=== PATIENT | male | born 1960 | race Caucasian/White ===

== ENCOUNTER 2019-01-20 19:37 | Inpatient (IN) | payer MEDICARE ==
[2019-01-20] MEDS: Atorvastatin Calcium 40 MG TAB PO SCH (20:39)
[2019-01-20] MEDS: Sulfameth/Trimethoprim DS 800-160mg TAB PO SCH (20:39)
[2019-01-20] MEDS: HYDROcodone/Acetaminophen 10/325 mg Tablet PO PRN (20:39)
[2019-01-20] MEDS: Apixaban 5 MG TAB PO SCH (20:39)
[2019-01-21] MEDS: HYDROcodone/Acetaminophen 10/325 mg Tablet PO PRN ×4 (01:14→21:17)
[2019-01-21 06:23] LABS: #Basophils 0.1 thou/uL (0.0-0.2); #Eosinphils 0.2 thou/uL (0.0-0.7); #Lymphocytes 0.9 thou/uL (1.20-3.40); #Monocytes 0.7 thou/uL (0.11-0.59); %Basophils 1.7 % (0.0-1.0); %Lymphocytes 15.6 % (21.0-51.0); %Neutrophils 66.7 % (42.0-75.0); Hemoglobin 15.1 g/dL (14.0-18.0); Mean Corpuscular HGB CONC 31.6 g/dL (32.0-36.0); Mean Corpuscular Hemoglobin 29.8 pg (27.0-31.0); Mean Corpuscular Volume 94.2 fL (78.0-98.0); Platelet Count 168 thou/uL (130-400); RBC Distribution Width 12.8 % (11.5-14.5); Red Blood Cell (RBC) Count 5.06 mill/uL (4.70-6.10)
[2019-01-21 06:38] LABS: ALT (SGPT) 24 U/L (8-55); AST (SGOT) 23 U/L (5-34); Albumin 3.3 g/dL (3.5-5.0); Alkaline Phosphatase 44 U/L (40-150); Anion Gap 13 mmol/L (10-20); BUN (Urea Nitrogen) 6 mg/dL (8.4-25.7); Bilirubin, Total 0.7 mg/dL (0.2-1.2); Calc. Creatinine Clearance 119 mL/min (70-130); Calcium 8.9 mg/dL (7.8-10.44); Carbon Dioxide 23 mmol/L (22-29); Chloride 103 mmol/L (98-107); Estimated GFR-MDRD Greater than 90; Globulin 2.9 g/dL (2.4-3.5); Glucose 86 mg/dL (70-105); Protein, Total 6.2 g/dL (6.0-8.3); Sodium 135 mmol/L (136-145)
[2019-01-21] MEDS: Lisinopril 10 MG TAB PO SCH (09:05)
[2019-01-21] MEDS: Sulfameth/Trimethoprim DS 800-160mg TAB PO SCH ×2 (09:05→20:23)
[2019-01-21] MEDS: Aspirin 81 mg Enteric Coated Tablet PO SCH (09:05)
[2019-01-21] MEDS: Apixaban 5 MG TAB PO SCH ×2 (09:05→20:23)
[2019-01-21] MEDS: Polyethylene Glycol 3350 17 GM Packet PO SCH (09:06)
--- NOTE | 2019-01-21 13:40 | HP ---
CHIEF COMPLAINT/BRIEF HISTORY: Peripheral vascular disease with right BKA stump wound, requiring admission to the hospital, IV antibiotics and evaluation by Vascular Surgery. Vascular Surgery felt that there is really not much they could do at this time, so he was treated with IV antibiotics and then has been switched over to Bactrim. His wound has been slowly healing. He was felt to need continued wound care and therapy and so has been transferred here to detention at [facility]. The patient is resting in bed and eating his lunch. He denies any questions or concerns. He states that the Delancey does help with the pain. He is tolerating his Bactrim. He was also restarted back on his Eliquis. No family at bedside. PAST MEDICAL HISTORY: 1. Peripheral vascular disease. 2. Hypertension. 3. Hyponatremia. 4. Dyslipidemia. 5. Deconditioning. 6. Bilateral BKA. 7. History of DVT. 8. History of alcohol and tobacco abuse. PAST SURGICAL HISTORY: 1. Bilateral BKA. 2. Inguinal hernia repair. 3. Appendectomy. FAMILY HISTORY: Positive for diabetes mellitus and coronary artery disease in his mother. Father at age 67 of leukemia. PSYCHOSOCIAL HISTORY: He smokes about a pack of cigarettes a day and has been doing for the last 35 years. He drinks about 6 to 12 beers daily. He denies any recreational drug use. MEDICATIONS: He has been transferred here on the following medications: 1. Bactrim DS p.o. b.i.d. 2. Eliquis 5 mg b.i.d. 3. Aspirin 81 mg daily. 4. Lipitor 40 mg daily. 5. Delancey 10/325 q.4 p.r.n. 6. Lisinopril 10 mg daily. 7. MiraLAX 17 g in 8 ounces of water daily. He has had 4 days of IV antibiotics, so we will continue Bactrim for a total of 10 days. REVIEW OF SYSTEMS: CARDIOVASCULAR SYSTEM: Denies any chest pain, shortness of breath, palpitations, PND, orthopnea, or pedal edema. RESPIRATORY SYSTEM: Denies any chronic cough, expectoration, or pleuritic-type chest pain. GASTROINTESTINAL SYSTEM: Denies any nausea, vomiting, diarrhea, constipation, hematemesis, melena, or hematochezia. GENITOURINARY SYSTEM: Denies any frequency, urgency, dysuria, or hematuria. CENTRAL NERVOUS SYSTEM: Generalized weakness. He has no focal numbness, weakness, or fainting spells. HEENT: Denies any difficulty speech, vision, hearing, or swallowing. SKIN: Denies any rash. PHYSICAL EXAMINATION: GENERAL: A pleasant 58-year-old male, resting comfortably and in no apparent distress. He responds appropriate to questions. VITAL SIGNS: He is afebrile. Heart rate 68, respirations 16, oxygen saturation 95% on room air, blood pressure 153/85. HEENT: Normocephalic, atraumatic. Pupils equally reactive to light and accommodation. External ocular muscles intact. NECK: No JVD, thyromegaly, cervical lymphadenopathy, or throat exudates. No carotid bruits. CARDIOVASCULAR SYSTEM: S1 and S2 plus. RESPIRATORY SYSTEM: Normal vesicular breath sounds. ABDOMEN: Soft, nontender. Bowel sounds heard in all quadrants. EXTREMITIES: Without cyanosis or clubbing. Right stump wounds with dressing. CENTRAL NERVOUS SYSTEM: Awake and responsive. Cranial nerves 2 through 12 grossly intact. Generalized weakness. LABORATORY DATA: Laboratory values done this morning shows a white count of 6, H and H are 15.1 and 47.6. Chemistry shows sodium 135, potassium 4.0, BUN and creatinine of 6 and 0.73. IMPRESSION: 1. Right kgorl-zbm-hrtl amputation stump wounds, requiring wound care. 2. Wound infection with Escherichia coli, Staphylococcus, and Stenotrophomonas, all sensitive to Bactrim. 3. Hypertension. 4. Dyslipidemia. 5. History of deep venous thrombosis. 6. Alcohol and tobacco abuse. PLAN: 1. Continue discharge medications. 2. Pain control. 3. Heart-healthy diet. 4. DVT prophylaxis. The patient is on Eliquis. 5. Decubitus precautions. 6. Wound care. 7. PT/OT eval and treat. 8. Routine laboratory values. 9. Discussed with the patient in detail and all questions answered. Job ID: [id number]
[2019-01-21] MEDS: Ibuprofen 800 MG TAB PO PRN (13:59)
[2019-01-21] MEDS: Atorvastatin Calcium 40 MG TAB PO SCH (20:23)
[2019-01-22] MEDS: HYDROcodone/Acetaminophen 10/325 mg Tablet PO PRN ×3 (09:11→21:04)
[2019-01-22] MEDS: Polyethylene Glycol 3350 17 GM Packet PO SCH (09:11)
[2019-01-22] MEDS: Apixaban 5 MG TAB PO SCH ×2 (09:12→21:04)
[2019-01-22] MEDS: Lisinopril 10 MG TAB PO SCH (09:12)
[2019-01-22] MEDS: Sulfameth/Trimethoprim DS 800-160mg TAB PO SCH ×2 (09:12→21:04)
[2019-01-22] MEDS: Aspirin 81 mg Enteric Coated Tablet PO SCH (09:12)
--- NOTE | 2019-01-22 13:19 | PRG ---
DATE OF SERVICE: 01/22/2019 SUBJECTIVE: Mr. Chan is doing well, resting comfortably in bed. Denies any concerns. His wound dressing was changed yesterday. He is happy with the progress. No family at bedside. OBJECTIVE: VITAL SIGNS: He is afebrile, heart rate 70, respirations 18, oxygen saturation 97% on room air, and blood pressure 163/84. CARDIOVASCULAR SYSTEM: S1 and S2 plus. RESPIRATORY SYSTEM: Normal vesicular breath sounds. ABDOMEN: Soft and nontender. Bowel sounds heard in all quadrants. EXTREMITIES: Bilateral BKA. Right BKA stump with dressing. CENTRAL NERVOUS SYSTEM: Grossly nonfocal. IMPRESSION: 1. Wounds to right below knee amputation, requiring wound care. 2. Peripheral vascular disease. 3. History of alcohol and tobacco abuse. 4. Hypertension. 5. Dyslipidemia. 6. History of deep venous thrombosis. PLAN: 1. Continue wound care and current medications. 2. DVT prophylaxis. He is on Eliquis. 3. 1800 calorie heart healthy ADA diet. 4. Accu-Cheks with sliding scale coverage. 5. Orthopedic precautions. 6. Physical therapy. 7. Routine laboratory values. 8. Discussed with the patient and nursing in detail and all questions answered. Job ID: [id number]
[2019-01-22] MEDS: Atorvastatin Calcium 40 MG TAB PO SCH (21:04)
[2019-01-23] MEDS: HYDROcodone/Acetaminophen 10/325 mg Tablet PO PRN ×2 (07:35→20:38)
[2019-01-23] MEDS: Sulfameth/Trimethoprim DS 800-160mg TAB PO SCH ×2 (09:01→20:38)
[2019-01-23] MEDS: Lisinopril 10 MG TAB PO SCH (09:01)
[2019-01-23] MEDS: Apixaban 5 MG TAB PO SCH ×2 (09:01→20:38)
[2019-01-23] MEDS: Aspirin 81 mg Enteric Coated Tablet PO SCH (09:02)
[2019-01-23] MEDS: Polyethylene Glycol 3350 17 GM Packet PO SCH ×2 (09:02→09:04)
[2019-01-23] MEDS: Ibuprofen 800 MG TAB PO PRN (10:39)
[2019-01-23 11:13] VITALS: BMI 21.5
[2019-01-23] MEDS: Atorvastatin Calcium 40 MG TAB PO SCH (20:38)
[2019-01-24] MEDS: Ibuprofen 800 MG TAB PO PRN ×2 (01:28→10:03)
[2019-01-24] MEDS: HYDROcodone/Acetaminophen 10/325 mg Tablet PO PRN ×3 (08:28→20:56)
[2019-01-24] MEDS: Aspirin 81 mg Enteric Coated Tablet PO SCH (08:29)
[2019-01-24] MEDS: Sulfameth/Trimethoprim DS 800-160mg TAB PO SCH ×2 (08:29→20:56)
[2019-01-24] MEDS: Polyethylene Glycol 3350 17 GM Packet PO SCH (08:29)
[2019-01-24] MEDS: Lisinopril 10 MG TAB PO SCH (08:29)
[2019-01-24] MEDS: Apixaban 5 MG TAB PO SCH ×2 (08:29→20:57)
[2019-01-24] MEDS: Atorvastatin Calcium 40 MG TAB PO SCH (20:56)
[2019-01-25] MEDS: Ibuprofen 800 MG TAB PO PRN ×2 (00:57→20:49)
[2019-01-25] MEDS: HYDROcodone/Acetaminophen 10/325 mg Tablet PO PRN ×2 (07:31→17:44)
[2019-01-25] MEDS: Sulfameth/Trimethoprim DS 800-160mg TAB PO SCH ×2 (08:47→20:49)
[2019-01-25] MEDS: Aspirin 81 mg Enteric Coated Tablet PO SCH (08:47)
[2019-01-25] MEDS: Lisinopril 10 MG TAB PO SCH (08:48)
[2019-01-25] MEDS: Polyethylene Glycol 3350 17 GM Packet PO SCH (08:48)
[2019-01-25] MEDS: Apixaban 5 MG TAB PO SCH ×2 (08:48→20:50)
[2019-01-25] MEDS: Atorvastatin Calcium 40 MG TAB PO SCH (20:50)
--- NOTE | 2019-01-25 20:55 | PRG ---
DATE OF SERVICE: 01/24/2019 SUBJECTIVE: The patient is a 58-year-old white male who has been admitted to the skilled unit for treatment of severe peripheral vascular disease with infection to his stump requiring IV antibiotics and then oral antibiotics. Because of incomplete healing, he was transferred to the skilled unit and continued on his Bactrim. He has been doing well with therapy with persistent, but decreased pain. OBJECTIVE: Shows; VITAL SIGNS: Temperature 97.8, pulse 83, respirations 18, O2 sats 92% on room air, blood pressure 119/63. LUNGS: Clear. CARDIAC: Showed regular rhythm. ABDOMEN: Soft and nontender. SKIN AND EXTREMITIES: Shows right BKA bandaged with abrasion and healing infection of the right knee. ASSESSMENT: 1. Cellulitis and infection of the right kolnz-emm-womq amputation with superficial infection, treated with wound care and oral antibiotics. 2. Severe peripheral vascular disease. 3. History of ETOH and alcohol abuse. 4. Hypertension. 5. Dyslipidemia. PLAN: 1. Continue wound care. 2. Continue Accu-Cheks with sliding scale coverage. 3. DVT prophylaxis. 4. Physical therapy to increase strength. Job ID: [id number]
--- NOTE | 2019-01-25 21:14 | PRG ---
DATE OF SERVICE: 01/25/2019 SUBJECTIVE: The patient feels well, lying in bed, visiting with friends on the phone. No complaints. At rest, stated his pain in his leg is getting better. He had no fever or chills. OBJECTIVE: VITAL SIGNS: Show his temperature is 96.5, pulse 74, respirations 18, O2 sats 96% on room air, blood pressure 104/61. LUNGS: Clear. CARDIAC: Shows regular rhythm. ABDOMEN: Soft, nontender. SKIN/EXTREMITIES: Shows right BKA bandaged with significant tenderness to palpation of the patella area. ASSESSMENT: 1. Slowly improving wound and cellulitis of the right jyenw-rne-vrja amputation superficial area. 2. Peripheral vascular disease, severe. Appears to be stable with adequate healing of the eyzkh-ebh-ybve amputation. 3. Nicotine and alcohol abuse. Appeared to be stable with no evidence of withdrawal. 4. Hypertension, controlled to goal. 5. History of deep venous thrombosis. PLAN: 1. Continue wound care. 2. Continue PT/OT. 3. Continue full-dose Eliquis for history of previous DVT. 4. Continue blood pressure control plan. Job ID: [id number]
[2019-01-26] MEDS: Ibuprofen 800 MG TAB PO PRN ×3 (06:08→20:41)
[2019-01-26] MEDS: Aspirin 81 mg Enteric Coated Tablet PO SCH (09:24)
[2019-01-26] MEDS: Lisinopril 10 MG TAB PO SCH (09:24)
[2019-01-26] MEDS: Apixaban 5 MG TAB PO SCH ×2 (09:24→20:41)
[2019-01-26] MEDS: Sulfameth/Trimethoprim DS 800-160mg TAB PO SCH ×2 (09:25→20:41)
[2019-01-26] MEDS: Polyethylene Glycol 3350 17 GM Packet PO SCH (09:26)
--- NOTE | 2019-01-26 13:43 | PRG ---
DATE OF SERVICE: 01/26/2019 SUBJECTIVE: Mr. Chan is doing well. Denies any complaints. Resting comfortably. Had a restful weekend. He is going to have his wound dressing changed again this afternoon and he is going to take his pain medicine about an hour before. No family at bedside. OBJECTIVE: VITAL SIGNS: He is afebrile. Heart rate 68, respirations 18, oxygen saturation 98% on room air, and blood pressure 110/63. CARDIOVASCULAR SYSTEM: S1 and S2 plus. RESPIRATORY SYSTEM: Normal vesicular breath sounds. ABDOMEN: Soft and nontender. Bowel sounds heard in all quadrants. EXTREMITIES: Bilateral BKA. Right stump with dressing. CENTRAL NERVOUS SYSTEM: Awake and responsive. Cranial nerves II through XII intact. Generalized weakness. IMPRESSION: 1. Right below the knee stump wounds requiring wound care. 2. Hypertension. 3. Dyslipidemia. 4. History of deep vein thrombosis. 5. History of alcohol and tobacco abuse. 6. Improving deconditioning. PLAN: 1. Continue current medications. 2. Nutritional support. 3. Heart healthy diet. 4. DVT prophylaxis-the patient is on Eliquis. 5. Decubitus precautions. 6. Wound care. 7. Therapy. 8. Routine laboratory values. 9. Discharge planning. Job ID: [id number]
[2019-01-26] MEDS: HYDROcodone/Acetaminophen 10/325 mg Tablet PO PRN ×2 (14:36→18:28)
[2019-01-26] MEDS: Atorvastatin Calcium 40 MG TAB PO SCH (20:41)
[2019-01-27] MEDS: Ibuprofen 800 MG TAB PO PRN ×4 (03:59→21:29)
[2019-01-27] MEDS: HYDROcodone/Acetaminophen 10/325 mg Tablet PO PRN (07:44)
[2019-01-27] MEDS: Lisinopril 10 MG TAB PO SCH (09:14)
[2019-01-27] MEDS: Sulfameth/Trimethoprim DS 800-160mg TAB PO SCH ×2 (09:14→21:30)
[2019-01-27] MEDS: Aspirin 81 mg Enteric Coated Tablet PO SCH (09:14)
[2019-01-27] MEDS: Apixaban 5 MG TAB PO SCH ×2 (09:14→21:30)
[2019-01-27] MEDS: Polyethylene Glycol 3350 17 GM Packet PO SCH (10:09)
--- NOTE | 2019-01-27 13:16 | PRG ---
DATE OF SERVICE: 01/27/2019 SUBJECTIVE: Mr. Chan said he did have some significant pain with wound change yesterday, and apparently, therapist was recommending that he may have to see his surgeon again, but I did not get any message, I will call therapy and find out. I did advise the patient that Dr. Doe had stated that there is nothing he can do from a revascularization standpoint, and if the wound is not healing, the only option he said was to do an AKA. The patient understands and is aware. OBJECTIVE: VITAL SIGNS: He is afebrile, heart rate 79, respirations 18, oxygen saturation 96% on room air, and blood pressure 101/62. CARDIOVASCULAR SYSTEM: S1 and S2 plus. RESPIRATORY SYSTEM: Normal vesicular breath sounds. ABDOMEN: Soft and nontender. Bowel sounds heard in all quadrants. EXTREMITIES: Bilateral BKA. Right BKA stump with dressing. CENTRAL NERVOUS SYSTEM: Awake and responsive. IMPRESSION: 1. Right below knee amputation stump with wound requiring wound care from therapy. 2. Peripheral vascular disease. 3. Hypertension. 4. Dyslipidemia. 5. History of deep venous thrombosis. 6. History of alcohol and tobacco abuse. PLAN: 1. Continue wound care. 2. Check with therapy and see what the patient was telling me about regarding possible specialist evaluation. 3. Heart healthy diet. 4. DVT and stress ulcer prophylaxis. The patient is on Eliquis. 5. Decubitus precautions. 6. Nutritional support. 7. Routine laboratory values. Job ID: [id number]
[2019-01-27] MEDS: Atorvastatin Calcium 40 MG TAB PO SCH (21:29)
[2019-01-28] MEDS: HYDROcodone/Acetaminophen 10/325 mg Tablet PO PRN ×4 (00:56→20:09)
[2019-01-28] MEDS: Ibuprofen 800 MG TAB PO PRN ×3 (05:50→22:28)
[2019-01-28] MEDS: Lisinopril 10 MG TAB PO SCH (08:27)
[2019-01-28] MEDS: Sulfameth/Trimethoprim DS 800-160mg TAB PO SCH ×2 (08:27→20:11)
[2019-01-28] MEDS: Apixaban 5 MG TAB PO SCH ×2 (08:28→20:11)
[2019-01-28] MEDS: Aspirin 81 mg Enteric Coated Tablet PO SCH (08:28)
[2019-01-28] MEDS: Polyethylene Glycol 3350 17 GM Packet PO SCH (08:28)
--- NOTE | 2019-01-28 12:53 | PRG ---
DATE OF SERVICE: 01/28/2019 SUBJECTIVE: Mr. Chan is doing the same. Denies any complaints. I discussed with Ananth, the wound care nurse yesterday and he stated that the wound is not healing, but it is also not getting any worse. He was wondering if anything can be done from a vascular standpoint. I had explained to him that Dr. Doe had pretty much said that nothing more he can do from a vascular standpoint and the only option he has left is to change it to an AKA so Ananth said he will keep an eye on the wound and if it is getting worse, he will let me know at which point we will transfer him back to [place] for the BKA to be converted to an AKA. OBJECTIVE: VITAL SIGNS: The patient is afebrile. Heart rate 76, respirations 18, oxygen saturation 94% on room air, blood pressure 101/74. CARDIOVASCULAR SYSTEM: S1-S2 plus. RESPIRATORY SYSTEM: Clear breath sounds. ABDOMEN: Soft, nontender. Bowel sounds in all quadrants. EXTREMITIES: Without cyanosis, clubbing. Bilateral BKA. Right BKA stump with dressing. IMPRESSION: 1. Right below knee amputation stump wound, probably ischemic in nature. 2. Peripheral vascular disease. 3. History of deep venous thrombosis and pulmonary embolus. 4. Dyslipidemia. 5. History of alcohol and tobacco abuse. 6. Deconditioning. PLAN: 1. Continue wound care. 2. Nutritional support. 3. DVT and stress ulcer prophylaxis. 4. Decubitus precautions. 5. Discontinue Bactrim, tomorrow the 25th it will be 10 days. 6. Wound care. 7. Recheck CBC and BMP in the morning. 8. Discussed with the patient in detail. All questions answered. Job ID: [id number]
[2019-01-28] MEDS: Atorvastatin Calcium 40 MG TAB PO SCH (20:11)
[2019-01-29] MEDS: HYDROcodone/Acetaminophen 10/325 mg Tablet PO PRN ×4 (03:37→21:10)
[2019-01-29 06:02] LABS: #Basophils 0.2 thou/uL (0.0-0.2); #Eosinphils 0.3 thou/uL (0.0-0.7); #Lymphocytes 1.2 thou/uL (1.20-3.40); #Monocytes 1.4 thou/uL (0.11-0.59); #Neutrophils 5.4 thou/uL (1.40-6.50); %Basophils 1.9 % (0.0-1.0); %Monocytes 16.1 % (0.0-10.0); Mean Corpuscular HGB CONC 31.4 g/dL (32.0-36.0); Mean Corpuscular Hemoglobin 29.2 pg (27.0-31.0); Mean Corpuscular Volume 92.9 fL (78.0-98.0); Mean Platelet Volume 6.1 fL (7.4-10.4); Platelet Count 243 thou/uL (130-400); RBC Distribution Width 12.3 % (11.5-14.5); Red Blood Cell (RBC) Count 5.15 mill/uL (4.70-6.10); White Blood Cell (WBC) Count 8.5 thou/uL (4.8-10.8)
[2019-01-29 06:15] LABS: Anion Gap 12 mmol/L (10-20); BUN (Urea Nitrogen) 14 mg/dL (8.4-25.7); Calc. Creatinine Clearance 115 mL/min (70-130); Calcium 9.6 mg/dL (7.8-10.44); Carbon Dioxide 26 mmol/L (22-29); Chloride 100 mmol/L (98-107); Estimated GFR-MDRD Greater than 90; Glucose 95 mg/dL (70-105); Potassium 4.8 mmol/L (3.5-5.1); Sodium 133 mmol/L (136-145)
[2019-01-29] MEDS: Polyethylene Glycol 3350 17 GM Packet PO SCH (07:51)
[2019-01-29] MEDS: Sulfameth/Trimethoprim DS 800-160mg TAB PO SCH ×2 (07:52→21:07)
[2019-01-29] MEDS: Lisinopril 10 MG TAB PO SCH (07:52)
[2019-01-29] MEDS: Apixaban 5 MG TAB PO SCH ×2 (07:53→21:07)
[2019-01-29] MEDS: Aspirin 81 mg Enteric Coated Tablet PO SCH (07:53)
[2019-01-29] MEDS: traMADol HCl 50 MG TAB PO PRN ×2 (11:55→18:21)
[2019-01-29] MEDS: Acetaminophen 325 MG TAB PO PRN ×2 (11:56→18:21)
--- NOTE | 2019-01-29 13:27 | PRG ---
DATE OF SERVICE: 01/29/2019 SUBJECTIVE: Mr. Chan is doing well. His tramadol was increased to 100 mg for better pain control. He is doing well otherwise. OBJECTIVE: VITAL SIGNS: He is afebrile. Heart rate 78, respirations 18, oxygen saturation 96% on room air, blood pressure 103/66. CARDIOVASCULAR SYSTEM: S1 and S2 plus. RESPIRATORY SYSTEM: Normal vesicular breath sounds. ABDOMEN: Soft, nontender. Bowel sounds heard in all quadrants. EXTREMITIES: Without cyanosis or clubbing. Bilateral BKA, right BKA wound with dressing. CENTRAL NERVOUS SYSTEM: Awake and responsive. Generalized weakness. LABORATORY DATA: White count is 8.5, hemoglobin and hematocrit are 15 and 47.8. Sodium 133, potassium 4.8, BUN and creatinine are 14 and 0.75. IMPRESSION: 1. Peripheral vascular disease. 2. Hyponatremia. 3. History of alcohol and tobacco abuse. 4. Hypertension. 5. Dyslipidemia. 6. History of DVT and PE on Eliquis. PLAN: 1. Continue wound care. 2. Nutritional support. 3. Pain control. His tramadol has been increased. 4. DVT and stress ulcer prophylaxis. He is on Eliquis. 5. Decubitus precautions. 6. Wound care. 7. Routine laboratory values. Job ID: [id number]
[2019-01-29] MEDS: Ibuprofen 800 MG TAB PO PRN ×2 (14:39→23:31)
[2019-01-29] MEDS: Atorvastatin Calcium 40 MG TAB PO SCH (21:07)
[2019-01-30] MEDS: Acetaminophen 325 MG TAB PO PRN ×3 (04:00→17:55)
[2019-01-30] MEDS: traMADol HCl 50 MG TAB PO PRN ×3 (04:00→17:54)
[2019-01-30] MEDS: Ibuprofen 800 MG TAB PO PRN ×3 (07:36→20:31)
[2019-01-30] MEDS: HYDROcodone/Acetaminophen 10/325 mg Tablet PO PRN (08:50)
[2019-01-30] MEDS: Lisinopril 10 MG TAB PO SCH (08:51)
[2019-01-30] MEDS: Sulfameth/Trimethoprim DS 800-160mg TAB PO SCH ×2 (08:51→20:31)
[2019-01-30] MEDS: Aspirin 81 mg Enteric Coated Tablet PO SCH (08:51)
[2019-01-30] MEDS: Famotidine 20 MG TAB PO SCH (08:51)
[2019-01-30] MEDS: Apixaban 5 MG TAB PO SCH ×2 (08:51→20:35)
[2019-01-30] MEDS: Polyethylene Glycol 3350 17 GM Packet PO SCH (08:52)
--- NOTE | 2019-01-30 11:30 | PRG ---
DATE OF SERVICE: 01/30/2019 SUBJECTIVE: Mr. Chan is doing well. He just finished his therapy. He is noticing some soreness in his right leg. No fever or chills. OBJECTIVE: VITAL SIGNS: He is afebrile. Heart rate 76, respirations 20, oxygen saturation 98% on room air, blood pressure 116/68. CARDIOVASCULAR: S1-S2 plus. RESPIRATORY: Normal vesicular breath sounds. ABDOMEN: Soft, nontender. Bowel sounds heard in all quadrants. EXTREMITIES: Bilateral BKA. Right BKA stump with dressing due to chronic wounds. CENTRAL NERVOUS SYSTEM: Generalized weakness. IMPRESSION: 1. Bilateral below knee amputation. 2. Right below knee amputation stump wound, likely ischemic. 3. History of alcohol and tobacco abuse. 4. History of deep venous thrombosis and pulmonary embolism, on Eliquis. 5. Hypertension. 6. Dyslipidemia. PLAN: 1. Continue current medications. 2. Nutritional support. 3. DVT and stress ulcer prophylaxis. 4. Decubitus precautions. 5. Wound care. 6. Pain control. 7. Physical therapy. 8. Monitor sodium levels. 9. Discussed with the patient in detail and all questions answered. Job ID: [id number]
[2019-01-30] MEDS: Atorvastatin Calcium 40 MG TAB PO SCH (20:31)
[2019-01-31] MEDS: Acetaminophen 325 MG TAB PO PRN ×2 (01:56→13:29)
[2019-01-31] MEDS: traMADol HCl 50 MG TAB PO PRN ×2 (01:56→13:28)
[2019-01-31] MEDS: HYDROcodone/Acetaminophen 10/325 mg Tablet PO PRN (07:28)
[2019-01-31] MEDS: Ibuprofen 800 MG TAB PO PRN (07:29)
[2019-01-31] MEDS: Famotidine 20 MG TAB PO SCH (09:11)
[2019-01-31] MEDS: Polyethylene Glycol 3350 17 GM Packet PO SCH (09:11)
[2019-01-31] MEDS: Sulfameth/Trimethoprim DS 800-160mg TAB PO SCH ×2 (09:11→20:33)
[2019-01-31] MEDS: Lisinopril 10 MG TAB PO SCH (09:11)
[2019-01-31] MEDS: Aspirin 81 mg Enteric Coated Tablet PO SCH (09:12)
[2019-01-31] MEDS: Apixaban 5 MG TAB PO SCH ×2 (09:12→20:32)
--- NOTE | 2019-01-31 16:08 | PRG ---
DATE OF SERVICE: 01/31/2019 SUBJECTIVE: Mr. Chan is complaining of more pain today. It apparently was under pretty good control yesterday. He is currently on tramadol 100 mg q.6 p.r.n. and hydrocodone 10/325 one tablet q.4 p.r.n. Plan is to change him on the tramadol to routine and I will change the hydrocodone to two 7.5 mg tablets q.4 p.r.n., which will get him close to the Tylenol maximum but not over. He also states that if he continues to have this much pain, then he would rather just undergo a right AKA and I advised him that let us re-evaluated this on Saturday, and if necessary, I will call Dr. Doe, who is his surgeon. OBJECTIVE: VITAL SIGNS: He is afebrile. Heart rate 95, respirations 18, oxygen saturation 95% on room air, and blood pressure 110/60. CARDIOVASCULAR SYSTEM: S1-S2 plus. RESPIRATORY SYSTEM: Normal vesicular breath sounds. ABDOMEN: Soft and nontender. Bowel sounds heard in all quadrants. EXTREMITIES: With bilateral BKA. Right BKA stump with dressing. IMPRESSION: 1. Likely ischemic ulcer, right BKA stump. 2. Peripheral vascular disease, resulting in bilateral BKA. 3. History of deep vein thrombosis and pulmonary embolism, on chronic anticoagulation. 4. History of alcohol and tobacco abuse. 5. Hyponatremia. PLAN: 1. Change tramadol to routine and change hydrocodone p.r.n. to 15 mg q.4. 2. Continue wound care. 3. Heart-healthy diet. 4. DVT prophylaxis. He is on Eliquis. 5. Decubitus precautions. 6. Stress ulcer prophylaxis. 7. Routine laboratory values. 8. Continue to monitor pain and will discuss with Dr. Doe on Saturday. Job ID: [id number]
[2019-01-31] MEDS: HYDROcodone/Acetaminophen 7.5/325 mg Tablet PO PRN ×2 (16:18→20:32)
[2019-01-31] MEDS: traMADol HCl 50 MG TAB PO SCH (17:31)
[2019-01-31] MEDS: Atorvastatin Calcium 40 MG TAB PO SCH (20:31)
[2019-02-01] MEDS: HYDROcodone/Acetaminophen 7.5/325 mg Tablet PO PRN ×4 (00:30→19:27)
[2019-02-01] MEDS: traMADol HCl 50 MG TAB PO SCH ×5 (01:11→23:58)
[2019-02-01] MEDS: Famotidine 20 MG TAB PO SCH (08:43)
[2019-02-01] MEDS: Polyethylene Glycol 3350 17 GM Packet PO SCH (08:43)
[2019-02-01] MEDS: Lisinopril 10 MG TAB PO SCH (08:43)
[2019-02-01] MEDS: Aspirin 81 mg Enteric Coated Tablet PO SCH (08:45)
[2019-02-01] MEDS: Apixaban 5 MG TAB PO SCH ×2 (08:45→20:38)
[2019-02-01] MEDS: Acetaminophen 325 MG TAB PO PRN ×2 (12:12→17:24)
[2019-02-01] MEDS: Atorvastatin Calcium 40 MG TAB PO SCH (20:38)
[2019-02-01] MEDS: Ibuprofen 800 MG TAB PO PRN (20:38)
[2019-02-02] MEDS: Ibuprofen 800 MG TAB PO PRN ×3 (02:53→20:50)
[2019-02-02] MEDS: traMADol HCl 50 MG TAB PO SCH ×3 (06:15→17:39)
[2019-02-02] MEDS: Apixaban 5 MG TAB PO SCH ×2 (09:02→20:50)
[2019-02-02] MEDS: Lisinopril 10 MG TAB PO SCH (09:02)
[2019-02-02] MEDS: Polyethylene Glycol 3350 17 GM Packet PO SCH (09:02)
[2019-02-02] MEDS: Famotidine 20 MG TAB PO SCH (09:02)
[2019-02-02] MEDS: Aspirin 81 mg Enteric Coated Tablet PO SCH (09:02)
[2019-02-02] MEDS: HYDROcodone/Acetaminophen 7.5/325 mg Tablet PO PRN (10:42)
[2019-02-02] MEDS: Acetaminophen 325 MG TAB PO PRN ×2 (12:18→17:39)
[2019-02-02] MEDS ORDERED: Sulfameth/Trimethoprim DS 800-160mg TAB PO SCH ×2 (13:45→21:00)
--- NOTE | 2019-02-02 13:46 | PRG ---
DATE OF SERVICE: 02/02/2019 SUBJECTIVE: Mr. Chan's right leg wound apparently looks worse today according to the Wound Care nurse. He is having some brownish drainage and a foul odor just like when he presented to the hospital. His Bactrim was done on the . His pain is also increasing. The patient states that he cannot deal with this anymore and he would really just like to get it converted to a right AKA if that is possible. His surgeon is Dr. Doe. I called his office and Dr. Doe is on vacation until February 09. Dr. Hampton is apparently covering and I spoke to the office staff and I asked Dr. Hampton to give me a call and I will figure out if Dr. Hampton wants to see him and see what he thinks or what the next step is. In the meantime, I am going to get him back on the Bactrim and get a CBC. Clinically, no fever at present. OBJECTIVE: VITAL SIGNS: He is afebrile. Heart rate 72, respirations 20, oxygen saturation 94% on room air, blood pressure 104/66. CARDIOVASCULAR SYSTEM: S1 and S2 plus. RESPIRATORY SYSTEM: Normal vesicular breath sounds. ABDOMEN: Soft and nontender. Bowel sounds heard in all quadrants. EXTREMITIES: Bilateral BKA. Right BKA stump with dressing. IMPRESSION: 1. Peripheral vascular disease requiring bilateral below-knee amputations. 2. Right below-knee amputation stump wound, getting worse per Wound Care with increasing pain. 3. History of alcohol and tobacco abuse. 4. History of deep venous thrombosis and pulmonary embolism, on anticoagulation. 5. Hyponatremia. PLAN: 1. Check CBC. 2. Resume Bactrim DS p.o. b.i.d.. 3. Continue current medications. 4. Await call from Dr. Hampton. 5. Continue wound care. 6. Monitor for any clinical deterioration. 7. Discussed with the patient in detail and all questions answered. Job ID: [id number]
[2019-02-02 14:29] LABS: Hemoglobin 14.6 g/dL (14.0-18.0); MDiff Complete? YES; Mean Corpuscular Hemoglobin 29.2 pg (27.0-31.0); Mean Corpuscular Volume 91.2 fL (78.0-98.0); Mean Platelet Volume 6.3 fL (7.4-10.4); Platelet Count 275 thou/uL (130-400); RBC Distribution Width 12.1 % (11.5-14.5); Red Blood Cell (RBC) Count 5.01 mill/uL (4.70-6.10); White Blood Cell (WBC) Count 9.5 thou/uL (4.8-10.8)
[2019-02-02 14:30] LABS: Band 2 % (5-11); Lymphocytes 24 % (21-51); Monocytes 9 % (0-10); Neutrophil 65 % (42-75); Platelet Morphology Comment Appears Adequate
[2019-02-02] MEDS: Atorvastatin Calcium 40 MG TAB PO SCH (20:50)
[2019-02-02] MEDS: Sulfameth/Trimethoprim DS 800-160mg TAB PO SCH (20:50)
[2019-02-03] MEDS: Acetaminophen 325 MG TAB PO PRN ×4 (00:02→17:48)
[2019-02-03] MEDS: traMADol HCl 50 MG TAB PO SCH ×4 (00:02→17:48)
[2019-02-03] MEDS: Ibuprofen 800 MG TAB PO PRN ×4 (03:11→21:08)
[2019-02-03] MEDS: Sulfameth/Trimethoprim DS 800-160mg TAB PO SCH ×2 (09:28→21:08)
[2019-02-03] MEDS: Lisinopril 10 MG TAB PO SCH (09:28)
[2019-02-03] MEDS: Aspirin 81 mg Enteric Coated Tablet PO SCH (09:28)
[2019-02-03] MEDS: Polyethylene Glycol 3350 17 GM Packet PO SCH (09:28)
[2019-02-03] MEDS: Famotidine 20 MG TAB PO SCH (09:28)
[2019-02-03] MEDS: Apixaban 5 MG TAB PO SCH ×2 (09:28→21:08)
--- NOTE | 2019-02-03 13:54 | PRG ---
DATE OF SERVICE: 02/03/2019 SUBJECTIVE: Mr. Chan is doing well. Denies any fever or chills. I informed him that I had contacted Dr. Hampton yesterday, and Dr. Hampton does feel like he needs to be examined, but it is not an emergency, and he would recommend waiting until Dr. Doe comes back. He said if it is an emergency, then to just send him to the ER. Mr. Chan is agreeable to wait. We got an appointment with him with Dr. Doe on the at 3 p.m. He states that the main issue is pain with wound care and I told him I will order some morphine prior to wound care. OBJECTIVE: VITAL SIGNS: He is afebrile, heart rate 71, respirations 20, oxygen saturation 95% on room air, and blood pressure 114/69. CARDIOVASCULAR SYSTEM: S1 and S2 plus. RESPIRATORY SYSTEM: Normal vesicular breath sounds. ABDOMEN: Soft and nontender. Bowel sounds heard in all quadrants. EXTREMITIES: Without cyanosis or clubbing. Bilateral BKA. Right BKA with dressing. LABORATORY DATA: Laboratory values done shows a sodium of 133, potassium 4.8, BUN and creatinine are 14 and 0.75. White count is 9.5 and H and H are 14.6 and 45.7. IMPRESSION: 1. Right below-knee amputation wound/ulcer, possibly ischemic. 2. Peripheral vascular disease, requiring bilateral below-knee amputation. 3. History of deep venous thrombosis and pulmonary embolism, requiring long-term anticoagulation. 4. History of tobacco and alcohol abuse. 5. Hyponatremia. PLAN: 1. Continue current medications including Bactrim. 2. Start morphine 2 mg to 4 mg IV prior to wound care. 3. Wound care. 4. Monitor for any worsening, and if so, we will send him to the ER. 5. Nursing aware of his appointment with Dr. Doe on February 11 at 3 p.m., to arrange transportation. 6. Nutritional support. 7. Discussed with the patient and nursing in detail and all questions answered. Job ID: [id number]
[2019-02-03] MEDS: Atorvastatin Calcium 40 MG TAB PO SCH (21:07)
[2019-02-04] MEDS: traMADol HCl 50 MG TAB PO SCH ×5 (00:19→23:55)
[2019-02-04] MEDS: Ibuprofen 800 MG TAB PO PRN ×3 (03:14→21:30)
[2019-02-04] MEDS ORDERED: Sodium Chloride 0.9% 20 ML ONE (07:21)
[2019-02-04] MEDS: Polyethylene Glycol 3350 17 GM Packet PO SCH (08:11)
[2019-02-04] MEDS: Aspirin 81 mg Enteric Coated Tablet PO SCH (08:11)
[2019-02-04] MEDS: Sulfameth/Trimethoprim DS 800-160mg TAB PO SCH ×2 (08:11→21:30)
[2019-02-04] MEDS: Apixaban 5 MG TAB PO SCH ×2 (08:11→21:30)
[2019-02-04] MEDS: Famotidine 20 MG TAB PO SCH (08:11)
[2019-02-04] MEDS: Lisinopril 10 MG TAB PO SCH (08:12)
[2019-02-04] MEDS ORDERED: Sodium Chloride 0.9% 10 ML ONE (12:59)
[2019-02-04] MEDS: Acetaminophen 325 MG TAB PO PRN (16:08)
[2019-02-04] MEDS: Atorvastatin Calcium 40 MG TAB PO SCH (21:29)
[2019-02-05] MEDS: Ibuprofen 800 MG TAB PO PRN ×4 (03:04→20:55)
[2019-02-05] MEDS: traMADol HCl 50 MG TAB PO SCH ×4 (05:55→23:38)
[2019-02-05] MEDS: Sulfameth/Trimethoprim DS 800-160mg TAB PO SCH ×2 (08:45→20:54)
[2019-02-05] MEDS: Apixaban 5 MG TAB PO SCH ×2 (08:45→20:54)
[2019-02-05] MEDS: Lisinopril 10 MG TAB PO SCH (08:45)
[2019-02-05] MEDS: Famotidine 20 MG TAB PO SCH (08:46)
[2019-02-05] MEDS: Aspirin 81 mg Enteric Coated Tablet PO SCH (08:46)
[2019-02-05] MEDS: Polyethylene Glycol 3350 17 GM Packet PO SCH (08:46)
--- NOTE | 2019-02-05 13:40 | PRG ---
DATE OF SERVICE: SUBJECTIVE: Mr. Chan is doing the same. Denies any complaints. He states the morphine 2 mg did help, but he still had some pain. Spoke with Wound Care from Physical Therapy and they state that the wound looks pretty much the same. No further deterioration, but they do not see it healing on its own. The patient does have an appointment with Dr. Doe on Saturday to discuss the possibility of surgical treatment, which most likely will be AKA. OBJECTIVE: VITAL SIGNS: The patient is afebrile, heart rate 66, respirations 16, oxygen saturation 96% on room air, and blood pressure 114/68. CARDIOVASCULAR SYSTEM: S1 and S2 plus. RESPIRATORY SYSTEM: Normal vesicular breath sounds. ABDOMEN: Soft and nontender. Bowel sounds heard in all quadrants. EXTREMITIES: Without cyanosis or clubbing. Bilateral BKA. Right BKA with dressing. IMPRESSION: 1. Peripheral vascular disease resulting in bilateral below-knee amputation. 2. Nonhealing ulcer to right below-knee amputation stump. 3. History of alcohol and tobacco abuse. 4. History of deep venous thrombosis and pulmonary embolism, on long-term anticoagulation. 5. Deconditioning. 6. Pain. PLAN: 1. Increase morphine to 4 mg prior to wound care. 2. Continue other pain medications. 3. Nutritional support. 4. Continue Eliquis. 5. Wound care. 6. Monitor for any worsening or sepsis, and if so, we will transfer him to the ER. 7. Follow up with Dr. Doe on February 11. 8. Discussed with the patient, nursing, and Wound Care and all questions answered. Job ID: [id number]
[2019-02-05] MEDS: Atorvastatin Calcium 40 MG TAB PO SCH (20:54)
[2019-02-06] MEDS: traMADol HCl 50 MG TAB PO SCH ×4 (05:29→23:25)
[2019-02-06] MEDS: Aspirin 81 mg Enteric Coated Tablet PO SCH (09:36)
[2019-02-06] MEDS: Sulfameth/Trimethoprim DS 800-160mg TAB PO SCH ×2 (09:36→19:53)
[2019-02-06] MEDS: Apixaban 5 MG TAB PO SCH ×2 (09:36→19:53)
[2019-02-06] MEDS: Lisinopril 10 MG TAB PO SCH ×2 (09:37→09:38)
[2019-02-06] MEDS: Famotidine 20 MG TAB PO SCH (09:37)
[2019-02-06] MEDS: Polyethylene Glycol 3350 17 GM Packet PO SCH (09:39)
--- NOTE | 2019-02-06 10:22 | PRG ---
DATE OF SERVICE: 02/06/2019 SUBJECTIVE: Mr. Chan is doing well. Denies any complaints. Resting comfortably. Has a followup appointment with Dr. Doe on Saturday. I increased his morphine before wound care, and he is hoping that helps. OBJECTIVE: VITAL SIGNS: He is afebrile, heart rate 74, respirations 16, oxygen saturation 96% on room air, blood pressure 100/64. CARDIOVASCULAR: S1 and S2 plus. RESPIRATORY: Normal vesicular breath sounds. ABDOMEN: Soft and nontender. Bowel sounds heard in all quadrants. EXTREMITIES: Bilateral BKA. Right BKA stump with wound dressing. IMPRESSION: 1. Wound to right below-knee amputation stump looks ischemic and not healing well. He is going to see Dr. Doe to see if it can be converted to an above-knee amputation. 2. Peripheral vascular disease. 3. History of deep venous thrombosis and pulmonary embolism, on anticoagulation. 4. History of alcohol and tobacco abuse. PLAN: 1. Continue wound care. 2. Continue Bactrim. 3. Deep venous thrombosis prophylaxis - he is on Eliquis. 4. Pain control. 5. Follow up with Dr. Doe. 6. Routine laboratory values. 7. Nutritional support. Job ID: [id number]
[2019-02-06] MEDS: Morphine 4 MG/ML VIAL SLOW IVP PRN (11:34)
[2019-02-06] MEDS: Atorvastatin Calcium 40 MG TAB PO SCH (19:53)
[2019-02-06] MEDS: Ibuprofen 800 MG TAB PO PRN (19:53)
[2019-02-07] MEDS: traMADol HCl 50 MG TAB PO SCH ×4 (05:29→23:56)
[2019-02-07] MEDS: Sulfameth/Trimethoprim DS 800-160mg TAB PO SCH ×2 (09:40→20:58)
[2019-02-07] MEDS: Famotidine 20 MG TAB PO SCH (09:40)
[2019-02-07] MEDS: Aspirin 81 mg Enteric Coated Tablet PO SCH (09:40)
[2019-02-07] MEDS: Apixaban 5 MG TAB PO SCH ×2 (09:40→20:58)
[2019-02-07] MEDS: Polyethylene Glycol 3350 17 GM Packet PO SCH (09:41)
[2019-02-07] MEDS: Ibuprofen 800 MG TAB PO PRN ×2 (10:11→16:26)
[2019-02-07] MEDS: Atorvastatin Calcium 40 MG TAB PO SCH (20:58)
[2019-02-08] MEDS: traMADol HCl 50 MG TAB PO SCH ×3 (05:37→17:25)
--- NOTE | 2019-02-08 06:42 | PRG ---
DATE OF SERVICE: 02/07/[address] Sarah Medina. SUBJECTIVE: The patient is lying in bed, watching TV, feels well. He states he is having persistent pain however in his right cayrf-vsi-rpew amputation, and is awaiting appointment to see Dr. Doe this week. He has become accustomed to the idea of the possible need for further revision and iuuzp-whz-vcpl amputation. OBJECTIVE: VITAL SIGNS: Blood pressure is 109/62, respirations 20, O2 sats 95% on room air, temperature 97, pulse 89. LUNGS: Clear. CARDIAC: Showed regular rhythm. ABDOMEN: Soft and nontender. SKIN/EXTREMITIES: Right lfaoh-yxz-qgbe stump is bandaged with tenderness to palpation over the patella and the stump incision. ASSESSMENT: 1. Persistent right lapke-yvv-imbw amputation stump ischemia, tenderness. Awaiting surgical evaluation this week. 2. Severe peripheral vascular disease, persistent. 3. History of deep venous thrombosis and pulmonary embolism, on adequate anticoagulation with apixaban 5 mg twice daily. 4. History of nicotine abuse with no recurrence during admission. PLAN: 1. Continue wound care. 2. Continue apixaban for deep venous thrombosis and treatment of pulmonary embolism. 3. Continue pain relief with medications per primary care physician. 4. Follow up with surgeon, Dr. Doe this week. Job ID: [id number]
[2019-02-08] MEDS: Lisinopril 10 MG TAB PO SCH (09:16)
[2019-02-08] MEDS: Aspirin 81 mg Enteric Coated Tablet PO SCH (09:16)
[2019-02-08] MEDS: Famotidine 20 MG TAB PO SCH (09:16)
[2019-02-08] MEDS: Sulfameth/Trimethoprim DS 800-160mg TAB PO SCH ×2 (09:16→20:36)
[2019-02-08] MEDS: Apixaban 5 MG TAB PO SCH ×2 (09:16→20:36)
[2019-02-08] MEDS: Polyethylene Glycol 3350 17 GM Packet PO SCH (09:17)
[2019-02-08] MEDS: HYDROcodone/Acetaminophen 7.5/325 mg Tablet PO PRN (20:34)
[2019-02-08] MEDS: Atorvastatin Calcium 40 MG TAB PO SCH (20:35)
--- NOTE | 2019-02-08 22:03 | PRG ---
DATE OF SERVICE: 02/08/2019 Patient is a patient of Dr. Sarah Medina. SUBJECTIVE: Patient feels well, except for pain in his knee and BKA, which has been consistent. He is having no shortness of breath, fever, chills, nausea, or vomiting. He is due to see his surgeon this week and is considering above knee amputation if his stump is not healing. OBJECTIVE: VITAL SIGNS: Show temperature is 97.3, pulse 81, respirations 20, O2 sats 96% on room air, and blood pressure 113/60. LUNGS: Clear. CARDIAC EXAMINATION: Shows regular rhythm. ABDOMEN: Soft and nontender. EXTREMITIES: Right BKA is bandaged but still operator brandy through the bandages. ASSESSMENT: 1. Right huvhd-ace-wmxj amputation with stump ischemia and tenderness. 2. Severe peripheral vascular disease. 3. History of deep venous thrombosis and pulmonary embolus, on apixaban, anticoagulation. 4. History of nicotine abuse with no recurrence. PLAN: Follow up with surgeon, Dr. Doe, this week. Continue wound care. Continue apixaban for DVT and treatment of embolism. Continue pain relief. Job ID: [id number]
[2019-02-09] MEDS: traMADol HCl 50 MG TAB PO SCH ×5 (00:06→18:05)
[2019-02-09] MEDS: Sulfameth/Trimethoprim DS 800-160mg TAB PO SCH ×2 (09:09→21:04)
[2019-02-09] MEDS: Aspirin 81 mg Enteric Coated Tablet PO SCH (09:09)
[2019-02-09] MEDS: Apixaban 5 MG TAB PO SCH ×2 (09:10→21:04)
[2019-02-09] MEDS: Famotidine 20 MG TAB PO SCH (09:10)
[2019-02-09] MEDS: Polyethylene Glycol 3350 17 GM Packet PO SCH (09:11)
[2019-02-09] MEDS: Lisinopril 10 MG TAB PO SCH (09:11)
--- NOTE | 2019-02-09 13:28 | PRG ---
DATE OF SERVICE: 02/09/2019 SUBJECTIVE: Mr. Chan is doing the same. Denies any complaints. Morphine is helping. No fever or chills. He states that his appetite is not as good. OBJECTIVE: VITAL SIGNS: He is afebrile. Heart rate is 72, respirations 16, oxygen saturation 96% on room air, blood pressure 104/70. CARDIOVASCULAR SYSTEM: S1 and S2 plus. RESPIRATORY SYSTEM: Normal vesicular breath sounds. ABDOMEN: Soft and nontender. Bowel sounds heard in all quadrants. EXTREMITIES: Bilateral BKA. Right BKA with dressing. CENTRAL NERVOUS SYSTEM: Awake and responsive. Generalized weakness. IMPRESSION: 1. Bilateral below-knee amputation due to peripheral vascular disease. 2. Nonhealing right below-knee amputation ulcer requiring wound care and pain medications. 3. History of alcohol and tobacco abuse. 4. History of deep venous thrombosis and pulmonary embolism requiring long-term anticoagulation. PLAN: 1. Continue current medications including antibiotics. 2. Add Florastor since he is on Bactrim. 3. Continue morphine before wound care. 4. He has appointment with Dr. Doe on Saturday. 5. Nutritional support. 6. Routine laboratory values. 7. Discussed with the patient and nursing in detail and all questions answered. Job ID: [id number]
[2019-02-09] MEDS: Morphine 4 MG/ML VIAL SLOW IVP PRN (13:53)
[2019-02-09] MEDS: Ibuprofen 800 MG TAB PO PRN ×2 (15:33→21:04)
[2019-02-09] MEDS: Saccharomyces boulardii 250 MG CAP PO SCH (21:04)
[2019-02-09] MEDS: Atorvastatin Calcium 40 MG TAB PO SCH (21:05)
[2019-02-10] MEDS: traMADol HCl 50 MG TAB PO SCH ×5 (00:11→23:45)
[2019-02-10] MEDS: Saccharomyces boulardii 250 MG CAP PO SCH ×2 (08:40→19:51)
[2019-02-10] MEDS: Polyethylene Glycol 3350 17 GM Packet PO SCH (08:40)
[2019-02-10] MEDS: Famotidine 20 MG TAB PO SCH (08:41)
[2019-02-10] MEDS: Apixaban 5 MG TAB PO SCH ×2 (08:41→19:51)
[2019-02-10] MEDS: Lisinopril 10 MG TAB PO SCH (08:41)
[2019-02-10] MEDS: Sulfameth/Trimethoprim DS 800-160mg TAB PO SCH ×2 (08:41→19:52)
[2019-02-10] MEDS: Aspirin 81 mg Enteric Coated Tablet PO SCH (08:41)
--- NOTE | 2019-02-10 13:52 | PRG ---
DATE OF SERVICE: 02/10/2019 SUBJECTIVE: Mr. Chan is doing the same. He was seen on his way to having a shower. He is scheduled to see Dr. Doe tomorrow. No concerns or questions. OBJECTIVE: VITAL SIGNS: He is afebrile. Heart rate 66, respirations 16, oxygen saturation 95% on room air, and blood pressure 102/62. CARDIOVASCULAR SYSTEM: S1 and S2 plus. RESPIRATORY SYSTEM: Normal vesicular breath sounds. ABDOMEN: Soft and nontender. Bowel sounds heard in all quadrants. EXTREMITIES: Bilateral BKA. Right BKA with dressing. IMPRESSION: 1. Nonhealing ulcer to right below-knee amputation stump. 2. Peripheral vascular disease requiring bilateral below-knee amputation. 3. History of deep vein thrombosis and pulmonary embolism, on long-term anticoagulation. 4. History of alcohol and tobacco abuse. 5. Deconditioning. 6. Hyponatremia. 7. Dyslipidemia. 8. Hypertension. PLAN: 1. Continue current medications. 2. Follow up with Dr. Doe tomorrow for possible AKA. 3. Wound care. 4. Pain control. 5. Continue Bactrim. 6. Routine laboratory values. 7. Wound care. 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 Job ID: [id number]
[2019-02-10] MEDS: Atorvastatin Calcium 40 MG TAB PO SCH (19:51)
[2019-02-10] MEDS: Ibuprofen 800 MG TAB PO PRN (19:52)
[2019-02-11] MEDS: traMADol HCl 50 MG TAB PO SCH ×4 (05:33→23:51)
[2019-02-11] MEDS: Apixaban 5 MG TAB PO SCH ×2 (08:58→20:10)
[2019-02-11] MEDS: Saccharomyces boulardii 250 MG CAP PO SCH ×2 (08:58→20:10)
[2019-02-11] MEDS: Polyethylene Glycol 3350 17 GM Packet PO SCH (08:58)
[2019-02-11] MEDS: Aspirin 81 mg Enteric Coated Tablet PO SCH (08:59)
[2019-02-11] MEDS: Famotidine 20 MG TAB PO SCH (08:59)
[2019-02-11] MEDS: Sulfameth/Trimethoprim DS 800-160mg TAB PO SCH ×2 (08:59→20:10)
[2019-02-11] MEDS: Lisinopril 10 MG TAB PO SCH (09:00)
--- NOTE | 2019-02-11 12:19 | PRG ---
DATE OF SERVICE: 02/11/2019 SUBJECTIVE: Mr. Chan is scheduled to see Dr. Doe this afternoon. He denies any concerns or questions. No fever or chills. OBJECTIVE: VITAL SIGNS: He is afebrile. Heart rate 67, respirations 18, oxygen saturation 97% on room air, and blood pressure 100/61. CARDIOVASCULAR SYSTEM: S1 and S2 plus. RESPIRATORY SYSTEM: Normal vesicular breath sounds. ABDOMEN: Soft and nontender. Bowel sounds heard in all quadrants. EXTREMITIES: Without cyanosis or clubbing. Bilateral BKA. Right BKA stump with dressing. CENTRAL NERVOUS SYSTEM: Awake and responsive. Cranial nerves 2 through 12 intact. IMPRESSION: 1. Peripheral vascular disease resulting in bilateral below-knee amputation. 2. Right below-knee amputation wound nonhealing. 3. History of deep venous thrombosis and pulmonary embolism, on anticoagulation. 4. History of alcohol and tobacco abuse. 5. Hypertension. 6. Dyslipidemia. PLAN: 1. Continue current medications. 2. Await Dr. Doe's opinion. Wound is not healing, most likely he will require an AKA. 3. Pain control. 4. Wound care. 5. Nutritional support. 6. Heart healthy diet. 7. Monitor blood pressure. 8. Routine laboratory values. Job ID: [id number]
[2019-02-11] MEDS: Morphine 4 MG/ML VIAL SLOW IVP PRN (14:15)
[2019-02-11] MEDS: Acetaminophen 325 MG TAB PO PRN (17:23)
[2019-02-11] MEDS: Ibuprofen 800 MG TAB PO PRN (20:10)
[2019-02-11] MEDS: Atorvastatin Calcium 40 MG TAB PO SCH (20:10)
[2019-02-12] MEDS: traMADol HCl 50 MG TAB PO SCH ×3 (05:59→17:20)
[2019-02-12] MEDS: Polyethylene Glycol 3350 17 GM Packet PO SCH (08:39)
[2019-02-12] MEDS: Lisinopril 10 MG TAB PO SCH (08:40)
[2019-02-12] MEDS: Famotidine 20 MG TAB PO SCH (08:40)
[2019-02-12] MEDS: Saccharomyces boulardii 250 MG CAP PO SCH ×2 (08:40→20:55)
[2019-02-12] MEDS: Sulfameth/Trimethoprim DS 800-160mg TAB PO SCH ×2 (08:40→20:56)
[2019-02-12] MEDS: Apixaban 5 MG TAB PO SCH (08:40)
[2019-02-12] MEDS: Aspirin 81 mg Enteric Coated Tablet PO SCH (08:40)
[2019-02-12] MEDS ORDERED: Mag-Al Plus 1200 MG/1200 MG/120 MG/30 ML UDCUP PO PRN (11:46)
--- NOTE | 2019-02-12 14:15 | PRG ---
DATE OF SERVICE: 02/12/2019 SUBJECTIVE: Mr. Chan saw Dr. Doe yesterday and plan is for him to get a right AKA tomorrow. He is supposed to be n.p.o. after midnight and apparently, all instructions have been given to nursing by his surgeon. The patient denies any concerns or questions. He states that he may be in the hospital for 3 days and is not sure whether he is going to come back here. OBJECTIVE: VITAL SIGNS: He is afebrile. Heart rate 77, respirations 16, oxygen saturation 94% on room air, blood pressure 104/62. CARDIOVASCULAR SYSTEM: S1 and S2 plus. RESPIRATORY SYSTEM: Normal vesicular breath sounds. ABDOMEN: Soft and nontender. Bowel sounds heard in all quadrants. EXTREMITIES: Bilateral BKA. Right BKA stump with dressing. CENTRAL NERVOUS SYSTEM: Awake and responsive. Generalized weakness. IMPRESSION: 1. Peripheral vascular disease, resulting in bilateral uanys-qmr-eusa amputation. 2. Right lgsir-mix-nvkz amputation stump with wounds, slowly healing, but significant pain. 3. History of deep venous thrombosis and pulmonary embolism, on anticoagulation. 4. History of alcohol and tobacco abuse. 5. Hypertension. 6. Dyslipidemia. PLAN: 1. Continue current medications. 2. Wound care. 3. Bactrim will stop after today. 4. N.p.o. after midnight for AKA tomorrow. 5. Discussed with the patient in detail. All questions answered. Job ID: [id number]
[2019-02-12] MEDS: Ibuprofen 800 MG TAB PO PRN (20:55)
[2019-02-12] MEDS: Atorvastatin Calcium 40 MG TAB PO SCH (20:55)
[2019-02-13] MEDS: traMADol HCl 50 MG TAB PO SCH ×2 (00:56→05:38)
[2019-02-13 08:28] VITALS: BP 102/63; TEMP 97
[2019-02-13] MEDS ORDERED: Apixaban 5 MG TAB PO SCH (09:00)
--- NOTE | 2019-02-13 10:29 | DIS ---
DATE OF ADMISSION: 01/20/2019 DATE OF DISCHARGE: 02/13/2019 PRINCIPAL DIAGNOSES: 1. Slowly healing right below-knee amputation stump ulcer, with plans for above-knee amputation today. 2. Peripheral vascular disease. 3. Hypertension. 4. Dyslipidemia. 5. History of deep venous thrombosis and pulmonary embolism, requiring chronic anticoagulation. 6. Hyponatremia. 7. History of alcohol and tobacco abuse. 8. Deconditioning. COMPLICATIONS: None. ADVERSE REACTIONS: None. PROCEDURES: Wound care. CONSULTATIONS: None. HOSPITAL COURSE: The patient was admitted after being admitted to [facility] in [place] with right BKA stump wound. He was initially treated with IV antibiotics and evaluated by Vascular Surgery, who felt that he just needs continued wound care, and if he does not improve, then the only other option is converting it to a right AKA. He came to us on Bactrim. He has been doing well, except just not fast enough improvement in his wound, but with worsening pain, requiring IV morphine prior to wound care. He was seen by Dr. Doe for followup, and because of the significant pain and the slow healing, the patient wanted some treatment that would give him improvement with his pain and apparently agreement was made to have him undergo an AKA. He is being transferred to the hospital for AKA. The patient was kept n.p.o. after midnight. His antibiotics have been discontinued. PHYSICAL EXAMINATION: VITAL SIGNS: On the day of discharge, he is afebrile, heart rate 74, respirations 18, oxygen saturation 96% on room air, and blood pressure 102/63. CARDIOVASCULAR SYSTEM: S1 and S2 plus. RESPIRATORY SYSTEM: Normal vesicular breath sounds. ABDOMEN: Soft and nontender. Bowel sounds heard in all quadrants. EXTREMITIES: Without cyanosis or clubbing. Bilateral BKA. Right BKA stump with dressing. CENTRAL NERVOUS SYSTEM: Awake and responsive. Cranial nerves 2 through 12 intact. Generalized weakness. PLAN: Transfer to [facility] for right AKA. DISCHARGE MEDICATIONS: He is to continue his, 1. [place] 7.5/325 two tablets q.4 p.r.n. 2. Eliquis 5 mg b.i.d. 3. Ecotrin 81 mg daily. 4. Lipitor 80 mg daily. 5. Pepcid 20 mg daily. 6. Motrin 800 mg q.6 p.r.n. 7. Lisinopril 10 mg daily. 8. MiraLAX 17 g in 8 ounces of water daily. 9. Tramadol 100 mg q.6 scheduled. He will be followed by Dr. Doe and possibly the medical team. If the patient comes back here, we will be glad to continue to follow him. For full details, please see chart. Job ID: [id number]
[2019-02-14] MEDS ORDERED: Aspirin 81 mg Enteric Coated Tablet PO SCH (09:00)
== END 2019-02-13 07:40 | disposition short-term general hospital (02) | DRG 565 ==
LOC: NAV ACUTE 19:37
PROVIDERS: ADMIT Internal Medicine; ATTEND Internal Medicine
DX: T87.43 Infection of amputation stump, right lower extremity (principal); E87.1 Hypo-osmolality and hyponatremia; B96.20 Unspecified Escherichia coli [E. coli] as the cause of diseases classified elsewhere; B95.8 Unspecified staphylococcus as the cause of diseases classified elsewhere; I10 Essential (primary) hypertension; E78.5 Hyperlipidemia, unspecified; F17.210 Nicotine dependence, cigarettes, uncomplicated; I73.9 Peripheral vascular disease, unspecified; F10.10 Alcohol abuse, uncomplicated; T87.89 Other complications of amputation stump; R53.81 Other malaise; Z86.718 Personal history of other venous thrombosis and embolism; Z90.49 Acquired absence of other specified parts of digestive tract; Z79.82 Long term (current) use of aspirin; Z86.711 Personal history of pulmonary embolism; Y83.5 Amputation of limb(s) as the cause of abnormal reaction of the patient, or of later complication, without mention of misadventure at the time of the procedure
CPT/HCPCS: 36415; 80048; 80053; 85025; 90471; 90732; 97602; G0009; J2270

== ENCOUNTER 2019-02-17 19:24 | Inpatient (IN) | payer MEDICARE ==
[2019-02-17] MEDS ORDERED: Acetaminophen 325 MG TAB PO PRN (19:56)
[2019-02-17] MEDS ORDERED: Morphine 4 MG/ML VIAL SLOW IVP PRN (20:00)
[2019-02-17] MEDS: Saccharomyces boulardii 250 MG CAP PO SCH (20:41)
[2019-02-17] MEDS: Apixaban 5 MG TAB PO SCH (20:41)
[2019-02-17] MEDS: Atorvastatin Calcium 40 MG TAB PO SCH (20:41)
[2019-02-17] MEDS: Sulfameth/Trimethoprim DS 800-160mg TAB PO SCH (20:42)
[2019-02-17] MEDS: HYDROcodone/Acetaminophen 10/325 mg Tablet PO PRN (20:42)
[2019-02-18] MEDS: traMADol HCl 50 MG TAB PO PRN (00:12)
[2019-02-18] MEDS: HYDROcodone/Acetaminophen 10/325 mg Tablet PO PRN ×3 (05:13→17:37)
[2019-02-18 05:35] LABS: #Basophils 0.1 thou/uL (0.0-0.2); #Eosinphils 0.4 thou/uL (0.0-0.7); #Lymphocytes 1.8 thou/uL (1.20-3.40); #Monocytes 0.6 thou/uL (0.11-0.59); #Neutrophils 2.9 thou/uL (1.40-6.50); %Basophils 1.5 % (0.0-1.0); %Eosinophils 6.3 % (0.0-10.0); %Lymphocytes 31.7 % (21.0-51.0); %Monocytes 10.6 % (0.0-10.0); %Neutrophils 49.8 % (42.0-75.0); Hemoglobin 12.9 g/dL (14.0-18.0); Mean Corpuscular HGB CONC 32.7 g/dL (32.0-36.0); Mean Corpuscular Hemoglobin 29.4 pg (27.0-31.0); Mean Corpuscular Volume 89.7 fL (78.0-98.0); Mean Platelet Volume 6.7 fL (7.4-10.4); Platelet Count 177 thou/uL (130-400); RBC Distribution Width 11.5 % (11.5-14.5); White Blood Cell (WBC) Count 5.8 thou/uL (4.8-10.8)
[2019-02-18 05:47] LABS: Anion Gap 12 mmol/L (10-20); BUN (Urea Nitrogen) 11 mg/dL (8.4-25.7); Calc. Creatinine Clearance 117 mL/min (70-130); Calcium 9.1 mg/dL (7.8-10.44); Carbon Dioxide 23 mmol/L (22-29); Chloride 104 mmol/L (98-107); Estimated GFR-MDRD Greater than 90; Glucose 96 mg/dL (70-105); Potassium 4.3 mmol/L (3.5-5.1); Sodium 135 mmol/L (136-145)
[2019-02-18] MEDS: Apixaban 5 MG TAB PO SCH ×2 (08:02→20:44)
[2019-02-18] MEDS: Lisinopril 10 MG TAB PO SCH (08:03)
[2019-02-18] MEDS: Polyethylene Glycol 3350 17 GM Packet PO SCH (08:03)
[2019-02-18] MEDS: Aspirin 81 mg Enteric Coated Tablet PO SCH (08:03)
[2019-02-18] MEDS: Famotidine 20 MG TAB PO SCH (08:03)
[2019-02-18] MEDS: Saccharomyces boulardii 250 MG CAP PO SCH ×2 (08:04→20:44)
[2019-02-18] MEDS: Sulfameth/Trimethoprim DS 800-160mg TAB PO SCH (08:04)
--- NOTE | 2019-02-18 14:16 | HP ---
PRINCIPAL DIAGNOSIS: Status post revision of his right BKA to AKA for physical therapy. BRIEF HISTORY: This is a pleasant 58-year-old male, who is known to me from his previous admission here. He was noted to have nonhealing wounds to his right BKA stump with increasing pain and so saw his surgeon and was converted to a right AKA. He has been transferred here to continue to monitor healing and physical therapy and hopefully home soon. The patient states that he is still requiring pain medications and now he is also noticing some phantom pain. He apparently was on gabapentin in the past, which helped. He denies any nausea or vomiting. Denies any fever or chills. PAST MEDICAL HISTORY: 1. Peripheral vascular disease. 2. Hypertension. 3. Hyponatremia. 4. Dyslipidemia. 5. Deconditioning. 6. History of DVT and PE, on chronic anticoagulation. 7. History of alcohol and tobacco abuse. PAST SURGICAL HISTORY: 1. Bilateral BKA. 2. Conversion of right BKA to AKA. 3. Inguinal hernia repair. 4. Appendectomy. FAMILY HISTORY: Positive for diabetes mellitus and coronary artery disease in his mother. There is history of leukemia in his father, who at age 67. PSYCHOSOCIAL HISTORY: He has more than 35 pack-year history of smoking. He apparently also was drinking at least 6 to 12 beers daily. Denies any IV drug abuse or recreational drug abuse. MEDICATIONS: He has been sent here on the following medications: 1. Tylenol 325 mg q.6 p.r.n. 2. [place] 10/325 one tablet q.4 p.r.n. 3. Eliquis 5 mg b.i.d. 4. Ecotrin 81 mg daily. 5. Lipitor 80 mg daily. 6. Pepcid 20 mg daily. 7. Ibuprofen 800 mg q.6 p.r.n. 8. Lisinopril 10 mg daily. 9. MiraLAX 17 g in 8 ounces of water daily. 10. Florastor 250 b.i.d. 11. Tramadol 100 mg daily. 12. Bactrim DS one p.o. b.i.d. REVIEW OF SYSTEMS: CARDIOVASCULAR SYSTEM: Denies any chest pain, shortness of breath, palpitations, PND, orthopnea, or pedal edema. RESPIRATORY SYSTEM: Denies any chronic cough, expectoration, or pleuritic type chest pain. GASTROINTESTINAL SYSTEM: Denies any nausea, vomiting, diarrhea, constipation, hematemesis, melena, or hematochezia. GENITOURINARY SYSTEM: Denies any frequency, urgency, dysuria, or hematuria. CENTRAL NERVOUS SYSTEM: Generalized weakness. Denies any focal numbness or weakness, but is noticing more phantom pain. HEENT: Denies any difficulty with speech, vision, hearing, or swallowing. SKIN: Denies any rash. PHYSICAL EXAMINATION: GENERAL: Pleasant 58-year-old male, who is resting comfortably in bed and denies any concerns. He is alert, awake, and oriented x3. VITAL SIGNS: He is afebrile. Heart rate 75, respirations 16, oxygen saturation 95% on room air, and blood pressure 107/63. CARDIOVASCULAR SYSTEM: S1 and S2 plus. RESPIRATORY SYSTEM: Normal vesicular breath sounds. ABDOMEN: Soft and nontender. Bowel sounds heard in all quadrants. EXTREMITIES: Without cyanosis or clubbing. Right BKA incision with dressing. Mild serosanguineous drainage on it. CENTRAL NERVOUS SYSTEM: Awake and responsive. Cranial nerves 2 through 12 intact. Generalized weakness. LABORATORY DATA: Laboratory values shows a white count of 5.8, H and H are 12.9 and 39.5. Sodium 135, potassium 4.3, BUN and creatinine are 11 and 0.68. IMPRESSION: 1. Revision of right below-knee amputation to above-knee amputation. 2. Peripheral vascular disease. 3. Hypertension. 4. Dyslipidemia. 5. Hyponatremia. 6. History of alcohol and tobacco abuse. 7. History of deep venous thrombosis and pulmonary embolism, on chronic anticoagulation. PLAN: 1. Continue current medications. 2. Stop Bactrim. 3. Heart-healthy diet. 4. Start gabapentin 100 mg t.i.d. 5. Incision care. 6. Orthopedic precautions. 7. Consult PT. 8. DVT prophylaxis-the patient is on Eliquis. 9. Routine laboratory values. 10. Discussed with the patient in detail. All questions answered. Job ID: [id number]
[2019-02-18] MEDS: Gabapentin 100 MG CAP PO SCH ×2 (14:36→20:44)
[2019-02-18] MEDS: Atorvastatin Calcium 40 MG TAB PO SCH (20:44)
[2019-02-19] MEDS: HYDROcodone/Acetaminophen 10/325 mg Tablet PO PRN ×2 (02:01→19:42)
[2019-02-19] MEDS: Aspirin 81 mg Enteric Coated Tablet PO SCH (08:58)
[2019-02-19] MEDS: Lisinopril 10 MG TAB PO SCH (08:58)
[2019-02-19] MEDS: Famotidine 20 MG TAB PO SCH (08:58)
[2019-02-19] MEDS: Apixaban 5 MG TAB PO SCH ×2 (08:59→19:41)
[2019-02-19] MEDS: Polyethylene Glycol 3350 17 GM Packet PO SCH (08:59)
[2019-02-19] MEDS: Saccharomyces boulardii 250 MG CAP PO SCH ×2 (08:59→19:42)
[2019-02-19] MEDS: Gabapentin 100 MG CAP PO SCH ×3 (08:59→19:41)
--- NOTE | 2019-02-19 13:35 | PRG ---
DATE OF SERVICE: 02/19/2019 SUBJECTIVE: Mr. Chan states that the gabapentin is helping. He denies any complaints or questions. No family at bedside. OBJECTIVE: VITAL SIGNS: He is afebrile. Heart rate 75, respirations 18, oxygen saturation 99% on room air, blood pressure 100/63. CARDIOVASCULAR SYSTEM: S1 and S2 plus. RESPIRATORY SYSTEM: Normal vesicular breath sounds. ABDOMEN: Soft, nontender. Bowel sounds heard in all quadrants. EXTREMITIES: Without cyanosis or clubbing. Right leg AKA incision with dressing. CENTRAL NERVOUS SYSTEM: Grossly nonfocal. IMPRESSION: 1. Peripheral vascular disease and nonhealing wound to right below-knee amputation, requiring conversion to right above-knee amputation. 2. Hypertension. 3. Dyslipidemia. 4. Hyponatremia. 5. History of deep venous thrombosis and pulmonary embolism, requiring chronic anticoagulation. PLAN: 1. Continue current medications. 2. Nutritional support. 3. Heart healthy diet. 4. Continue Eliquis. 5. Incision care. 6. Routine laboratory values. 7. Physical therapy. Job ID: [id number]
[2019-02-19] MEDS: Atorvastatin Calcium 40 MG TAB PO SCH (19:41)
[2019-02-20] MEDS: HYDROcodone/Acetaminophen 10/325 mg Tablet PO PRN ×4 (01:31→20:39)
[2019-02-20] MEDS: Ibuprofen 800 MG TAB PO PRN ×2 (06:50→12:41)
[2019-02-20] MEDS: Gabapentin 100 MG CAP PO SCH ×3 (09:14→20:39)
[2019-02-20] MEDS: Apixaban 5 MG TAB PO SCH ×2 (09:14→20:39)
[2019-02-20] MEDS: Famotidine 20 MG TAB PO SCH (09:14)
[2019-02-20] MEDS: Aspirin 81 mg Enteric Coated Tablet PO SCH (09:14)
[2019-02-20] MEDS: Lisinopril 10 MG TAB PO SCH (09:15)
[2019-02-20] MEDS: Saccharomyces boulardii 250 MG CAP PO SCH ×2 (09:15→20:39)
[2019-02-20] MEDS: Polyethylene Glycol 3350 17 GM Packet PO SCH (09:16)
[2019-02-20 12:11] VITALS: BMI 19.8
[2019-02-20] MEDS: Atorvastatin Calcium 40 MG TAB PO SCH (20:39)
[2019-02-21] MEDS: Ibuprofen 800 MG TAB PO PRN ×2 (06:08→14:11)
[2019-02-21] MEDS: Gabapentin 100 MG CAP PO SCH ×3 (09:39→22:35)
[2019-02-21] MEDS: Aspirin 81 mg Enteric Coated Tablet PO SCH (09:39)
[2019-02-21] MEDS: Apixaban 5 MG TAB PO SCH ×2 (09:39→22:34)
[2019-02-21] MEDS: Polyethylene Glycol 3350 17 GM Packet PO SCH (09:39)
[2019-02-21] MEDS: Famotidine 20 MG TAB PO SCH (09:39)
[2019-02-21] MEDS: Saccharomyces boulardii 250 MG CAP PO SCH ×2 (09:39→22:35)
[2019-02-21] MEDS: Lisinopril 10 MG TAB PO SCH (09:39)
--- NOTE | 2019-02-21 10:58 | PRG ---
DATE OF SERVICE: 02/21/[address] Sarah Medina. SUBJECTIVE: The patient feels much better, status post right ouwqi-oyl-xcan amputation with decreasing pain with gabapentin, increasing strength, increasing mood, cooperating with therapy and has no complaints. OBJECTIVE: VITAL SIGNS: Temperature 98.2, pulse 70, respirations 20, O2 saturations 98% on room air, and blood pressure 135/60. LUNGS: Clear. CARDIAC: Showed regular rhythm. Right AKA is healing well with no tenderness. ASSESSMENT: 1. Severe peripheral vascular disease, status post left below knee amputation and now right above knee amputation, but healing well. 2. Hypertension, controlled to goal. 3. History of deep venous thrombosis and pulmonary embolism on chronic anticoagulation. PLAN: 1. Continue wound care. 2. Continue apixaban. 3. Continue to monitor vital signs closely. 4. Continue stress ulcer prophylaxis. Job ID: [id number]
--- NOTE | 2019-02-21 10:58 | PRG ---
DATE OF SERVICE: 02/20/2019 SUBJECTIVE: Mr. Chan is resting comfortably. Denies any complaints. States that the gabapentin seems to be helping. No family at bedside. No fever or chills. OBJECTIVE: VITAL SIGNS: He is afebrile. Heart rate 70, respirations 20, oxygen saturation 98% on room air, blood pressure 133/60. CARDIOVASCULAR: S1 and S2 plus. RESPIRATORY: Normal vesicular breath sounds. ABDOMEN: Soft, nontender. Bowel sounds heard in all quadrants. EXTREMITIES: Without cyanosis, clubbing. Right AKA incision with dressing. Left BKA. CENTRAL NERVOUS SYSTEM: Awake and responsive. Grossly nonfocal. IMPRESSION: 1. Recent conversion of right BKA to AKA. 2. Peripheral vascular disease. 3. Hypertension. 4. Dyslipidemia. 5. Hyponatremia. 6. History of deep vein thrombosis and pulmonary embolism requiring chronic anticoagulation. PLAN: 1. Continue current medications. 2. Incision care. 3. Nutritional support. 4. Monitor blood pressure. 5. Pain control. 6. Continue gabapentin. 7. Discharge planning. Job ID: [id number]
[2019-02-21] MEDS: Atorvastatin Calcium 40 MG TAB PO SCH (22:34)
[2019-02-21] MEDS: HYDROcodone/Acetaminophen 10/325 mg Tablet PO PRN (22:35)
[2019-02-22] MEDS: Polyethylene Glycol 3350 17 GM Packet PO SCH (09:49)
[2019-02-22] MEDS: Apixaban 5 MG TAB PO SCH ×2 (09:49→20:32)
[2019-02-22] MEDS: Famotidine 20 MG TAB PO SCH (09:49)
[2019-02-22] MEDS: Saccharomyces boulardii 250 MG CAP PO SCH ×2 (09:49→20:32)
[2019-02-22] MEDS: Lisinopril 10 MG TAB PO SCH (09:50)
[2019-02-22] MEDS: Gabapentin 100 MG CAP PO SCH ×3 (09:50→20:32)
[2019-02-22] MEDS: Aspirin 81 mg Enteric Coated Tablet PO SCH (09:50)
[2019-02-22] MEDS: HYDROcodone/Acetaminophen 10/325 mg Tablet PO PRN ×2 (09:55→18:18)
[2019-02-22] MEDS: traMADol HCl 50 MG TAB PO PRN (13:12)
[2019-02-22] MEDS: Atorvastatin Calcium 40 MG TAB PO SCH (20:31)
--- NOTE | 2019-02-22 22:19 | PRG ---
DATE OF SERVICE: 02/22/2019 SUBJECTIVE: The patient is sitting up, eating supper, cheerful, in no distress. He states he is having almost no pain, getting much stronger whatever therapy is needed. OBJECTIVE: VITAL SIGNS: Show temperature is 96, pulse 78, respirations 18, O2 sats 97% on room air, blood pressure 98/61. LUNGS: Clear. CARDIAC: Showed regular rhythm. ABDOMEN: Soft and nontender. EXTREMITIES: Right AKA stump is healing with minimal tenderness. Left BKA stump has healed. ASSESSMENT: 1. Healing right hizob-aeq-cwcz amputation stump. 2. Healed left qlptn-fzn-sinw amputation stump. 3. Stable hypertension. 4. History of deep venous thrombosis and pulmonary embolus, on chronic anticoagulation. PLAN: 1. Continue PT. 2. Continue wound care. 3. Continue current medications. 4. Continue pain control per his PCP. 5. . Job ID: [id number]
[2019-02-23] MEDS: Ibuprofen 800 MG TAB PO PRN ×2 (05:39→18:17)
[2019-02-23] MEDS: Saccharomyces boulardii 250 MG CAP PO SCH ×2 (08:24→20:22)
[2019-02-23] MEDS: Aspirin 81 mg Enteric Coated Tablet PO SCH (08:25)
[2019-02-23] MEDS: Gabapentin 100 MG CAP PO SCH ×3 (08:25→20:22)
[2019-02-23] MEDS: Apixaban 5 MG TAB PO SCH ×2 (08:25→20:22)
[2019-02-23] MEDS: Lisinopril 10 MG TAB PO SCH (08:25)
[2019-02-23] MEDS: Polyethylene Glycol 3350 17 GM Packet PO SCH (08:25)
[2019-02-23] MEDS: Famotidine 20 MG TAB PO SCH (08:25)
--- NOTE | 2019-02-23 14:12 | PRG ---
DATE OF SERVICE: 02/23/2019 SUBJECTIVE: Mr. Chan is doing well. Denies any complaints. He is still having some minimal serosanguineous drainage from the middle part of his incision. Otherwise, it looks healthy. His pain is improving. No concerns or questions. OBJECTIVE: VITAL SIGNS: He is afebrile. Heart rate 86, respirations 18, oxygen saturation 96% on room air, blood pressure 104/63. CARDIOVASCULAR SYSTEM: S1 and S2 plus. RESPIRATORY SYSTEM: Normal vesicular breath sounds. ABDOMEN: Soft and nontender. Bowel sounds heard in all quadrants. EXTREMITIES: Left BKA. Right recent AKA. IMPRESSION: 1. Hypertension. 2. Dyslipidemia. 3. Hyponatremia. 4. History of deep venous thrombosis and pulmonary embolism, on chronic anticoagulation. 5. Peripheral vascular disease. 6. Healing right vcusw-qay-tlha amputation revision incision site. PLAN: 1. Continue to monitor incision and wound care. 2. Heart healthy diet. 3. Continue Eliquis for DVT prophylaxis and full anticoagulation. 4. Routine laboratory values. 5. Physical therapy. 6. Discharge to home once cleared by Wound Care and Therapy. Job ID: [id number]
[2019-02-23] MEDS: Atorvastatin Calcium 20 MG TAB PO SCH (20:22)
[2019-02-24] MEDS: HYDROcodone/Acetaminophen 10/325 mg Tablet PO PRN (05:34)
[2019-02-24] MEDS: Famotidine 20 MG TAB PO SCH (08:33)
[2019-02-24] MEDS: Saccharomyces boulardii 250 MG CAP PO SCH ×2 (08:33→20:20)
[2019-02-24] MEDS: Aspirin 81 mg Enteric Coated Tablet PO SCH (08:33)
[2019-02-24] MEDS: Apixaban 5 MG TAB PO SCH ×2 (08:33→20:19)
[2019-02-24] MEDS: Gabapentin 100 MG CAP PO SCH ×3 (08:33→20:20)
[2019-02-24] MEDS: traMADol HCl 50 MG TAB PO PRN (08:34)
[2019-02-24] MEDS: Lisinopril 10 MG TAB PO SCH (08:34)
[2019-02-24] MEDS: Polyethylene Glycol 3350 17 GM Packet PO SCH (08:35)
--- NOTE | 2019-02-24 14:01 | PRG ---
DATE OF SERVICE: 02/24/2019 SUBJECTIVE: Mr. Chan is doing well, except he is still noticing occasional episodes of phantom pain to his left leg. His right BKA incision looks great. Minimal serous drainage. No erythema. OBJECTIVE: VITAL SIGNS: He is afebrile, heart rate 72, respirations 18, oxygen saturation 98% on room air, and blood pressure 125/79. CARDIOVASCULAR SYSTEM: S1 and S2 plus. RESPIRATORY SYSTEM: Normal vesicular breath sounds. ABDOMEN: Soft and nontender. Bowel sounds heard in all quadrants. EXTREMITIES: Right BKA incision looks healthy. CENTRAL NERVOUS SYSTEM: Awake and responsive. Generalized weakness. IMPRESSION: 1. Hypertension. 2. Dyslipidemia. 3. Hyponatremia. 4. History of deep venous thrombosis and pulmonary embolism. 5. Peripheral vascular disease, status post bilateral below-knee amputation to revision of right below-knee amputation to right above-knee amputation and phantom pain, responding to gabapentin. PLAN: 1. Continue current medications. 2. Nutritional support. 3. Incision care. 4. Increase gabapentin to 300 mg t.i.d. 5. Anticipate discharging home on Saturday. 6. Informed nursing. 7. Continue PT. 8. Recheck CBC and BMP in the morning. Job ID: [id number]
[2019-02-24] MEDS: Atorvastatin Calcium 20 MG TAB PO SCH (20:20)
[2019-02-24] MEDS: Ibuprofen 800 MG TAB PO PRN (20:21)
[2019-02-25 05:11] LABS: #Basophils 0.1 thou/uL (0.0-0.2); #Eosinphils 0.4 thou/uL (0.0-0.7); #Lymphocytes 1.6 thou/uL (1.20-3.40); #Monocytes 0.6 thou/uL (0.11-0.59); %Basophils 1.2 % (0.0-1.0); %Eosinophils 6.9 % (0.0-10.0); %Lymphocytes 27.6 % (21.0-51.0); %Monocytes 11.2 % (0.0-10.0); %Neutrophils 53.1 % (42.0-75.0); Hemoglobin 12.2 g/dL (14.0-18.0); Mean Corpuscular HGB CONC 33.2 g/dL (32.0-36.0); Mean Corpuscular Hemoglobin 29.6 pg (27.0-31.0); Mean Corpuscular Volume 89.3 fL (78.0-98.0); Mean Platelet Volume 6.7 fL (7.4-10.4); Platelet Count 176 thou/uL (130-400); RBC Distribution Width 11.4 % (11.5-14.5); White Blood Cell (WBC) Count 5.6 thou/uL (4.8-10.8)
[2019-02-25 05:28] LABS: Anion Gap 12 mmol/L (10-20); BUN (Urea Nitrogen) 16 mg/dL (8.4-25.7); Calc. Creatinine Clearance 126 mL/min (70-130); Carbon Dioxide 25 mmol/L (22-29); Chloride 105 mmol/L (98-107); Estimated GFR-MDRD Greater than 90; Glucose 98 mg/dL (70-105); Potassium 4.2 mmol/L (3.5-5.1); Sodium 138 mmol/L (136-145)
[2019-02-25] MEDS: Ibuprofen 800 MG TAB PO PRN (07:02)
[2019-02-25] MEDS: Gabapentin 100 MG CAP PO SCH ×2 (08:41→15:08)
[2019-02-25] MEDS: Famotidine 20 MG TAB PO SCH (08:41)
[2019-02-25] MEDS: Aspirin 81 mg Enteric Coated Tablet PO SCH (08:41)
[2019-02-25] MEDS: Lisinopril 10 MG TAB PO SCH (08:41)
[2019-02-25] MEDS: Polyethylene Glycol 3350 17 GM Packet PO SCH (08:42)
[2019-02-25] MEDS: Saccharomyces boulardii 250 MG CAP PO SCH ×2 (08:42→20:48)
[2019-02-25] MEDS: Apixaban 5 MG TAB PO SCH ×2 (08:42→20:52)
[2019-02-25] MEDS: traMADol HCl 50 MG TAB PO PRN (12:46)
--- NOTE | 2019-02-25 13:19 | PRG ---
DATE OF SERVICE: 02/25/2019 SUBJECTIVE: Mr. Chan is doing well. He thinks the increase in gabapentin is helping. His incision is healing nicely. Discussed with therapy. They recommend home health for continued monitoring of the incision and follow up with PCP for possible wheelchair order. OBJECTIVE: VITAL SIGNS: He is afebrile, heart rate 74, respirations 18, oxygen saturation 97% on room air, blood pressure 110/73. CARDIOVASCULAR SYSTEM: S1 and S2 plus. RESPIRATORY SYSTEM: Normal vesicular breath sounds. ABDOMEN: Soft, nontender. Bowel sounds heard in all quadrants. EXTREMITIES: Without cyanosis or clubbing. Bilateral amputation, left BKA and right AKA. CENTRAL NERVOUS SYSTEM: Awake and responsive. Grossly nonfocal. IMPRESSION: 1. Recent conversion of right below-knee amputation to above-knee amputation due to nonhealing ulcer. 2. Peripheral vascular disease. 3. Hypertension. 4. Dyslipidemia. 5. Hyponatremia. 6. History of deep venous thrombosis and pulmonary embolism, on anticoagulation. PLAN: 1. Continue current medications. 2. Nutritional support. 3. DVT prophylaxis. 4. Decubitus precautions. 5. Continue gabapentin for phantom pain. 6. Incision care. 7. Discharge planning. 8. Discussed with the patient and nursing in detail. All questions answered. Job ID: [id number]
[2019-02-25] MEDS: HYDROcodone/Acetaminophen 10/325 mg Tablet PO PRN ×2 (15:12→20:49)
[2019-02-25] MEDS: Atorvastatin Calcium 40 MG TAB PO SCH (20:49)
[2019-02-25] MEDS: Gabapentin 300 MG CAP PO SCH (20:50)
[2019-02-26] MEDS: Ibuprofen 800 MG TAB PO PRN ×2 (06:01→13:29)
[2019-02-26] MEDS: Famotidine 20 MG TAB PO SCH (08:11)
[2019-02-26] MEDS: Aspirin 81 mg Enteric Coated Tablet PO SCH (08:11)
[2019-02-26] MEDS: Apixaban 5 MG TAB PO SCH ×2 (08:11→20:51)
[2019-02-26] MEDS: Saccharomyces boulardii 250 MG CAP PO SCH ×2 (08:11→20:51)
[2019-02-26] MEDS: Gabapentin 300 MG CAP PO SCH ×3 (08:11→20:51)
[2019-02-26] MEDS: Polyethylene Glycol 3350 17 GM Packet PO SCH (08:12)
[2019-02-26] MEDS: Lisinopril 10 MG TAB PO SCH (10:25)
--- NOTE | 2019-02-26 13:26 | PRG ---
DATE OF SERVICE: 02/26/2019 SUBJECTIVE: Mr. Chan is doing well. Denies any complaints. Resting comfortably. He wants to go home tomorrow. He was deemed stable from therapy standpoint. Arrangements for home health will be done and he is to follow up with his PCP to try to get his prosthetics and his wheelchair. OBJECTIVE: VITAL SIGNS: He is afebrile, heart rate 76, respirations 16, oxygen saturation 95% on room air, and blood pressure 101/58. CARDIOVASCULAR: S1 and S2 plus. RESPIRATORY: Normal vesicular breath sounds. ABDOMEN: Soft, nontender. Bowel sounds heard in all quadrants. EXTREMITIES: Without cyanosis or clubbing. Left BKA and right AKA healing nicely. IMPRESSION: 1. Hypertension. 2. Dyslipidemia. 3. Hyponatremia, which has resolved. 4. Peripheral vascular disease. 5. History of deep venous thrombosis and pulmonary embolism, on anticoagulation. 6. Recent conversion of right BKA to AKA due to nonhealing ischemic ulcer. PLAN: 1. Continue current medications. 2. Send his prescription [place], the only two he needs are his ibuprofen and his gabapentin. 3. Case Management to arrange home health. 4. Outpatient followup with PCP. 5. Heart healthy diet. 6. The patient was advised to call us with any questions or concerns. 7. He will be seen by Dr. Quintanilla tomorrow prior to discharge. Job ID: [id number]
[2019-02-26] MEDS: Atorvastatin Calcium 40 MG TAB PO SCH (20:50)
[2019-02-26] MEDS: traMADol HCl 50 MG TAB PO PRN (20:50)
[2019-02-27] MEDS: Ibuprofen 800 MG TAB PO PRN (06:07)
[2019-02-27 07:49] VITALS: BP 116/56; TEMP 98.2
[2019-02-27] MEDS: Saccharomyces boulardii 250 MG CAP PO SCH (08:12)
[2019-02-27] MEDS: Gabapentin 300 MG CAP PO SCH (08:13)
[2019-02-27] MEDS: Apixaban 5 MG TAB PO SCH (08:13)
[2019-02-27] MEDS: Famotidine 20 MG TAB PO SCH (08:13)
[2019-02-27] MEDS: Lisinopril 10 MG TAB PO SCH (08:13)
[2019-02-27] MEDS: Aspirin 81 mg Enteric Coated Tablet PO SCH (08:13)
[2019-02-27] MEDS: Polyethylene Glycol 3350 17 GM Packet PO SCH (08:14)
--- NOTE | 2019-02-27 14:27 | DIS ---
DATE OF ADMISSION: 02/17/2019 DATE OF DISCHARGE: 02/26/2019 HOSPITAL COURSE: Mr. Chan is a very pleasant 58-year-old white male, who had a right irkqi-xcb-[id number] amputation stump with increased pain and nonhealing. His surgeon converted it to a right hdccg-tkq-cqgs amputation, and he was transferred to [facility] for continued healing, pain management, and physical therapy and occupational therapy. The patient has actually done very well and has reached maximum medical benefit and is ready for discharge. He lives in [place], [place], which is where he will be returning. DISCHARGE MEDICATIONS: Include the followin. Eliquis 5 mg b.i.d. 2. Aspirin 81 mg daily. 3. Atorvastatin 80 mg at bedtime. 4. Pepcid 20 mg b.i.d. 5. Gabapentin 300 mg t.i.d. 6. Ibuprofen 800 mg t.i.d. p.r.n., always with food. 7. Lisinopril 10 mg daily. 8. MiraLAX scheduled daily. 9. Florastor b.i.d. PHYSICAL EXAMINATION: VITAL SIGNS: Today, reveal blood pressure 116/56, pulse 68 to 91, respirations 16 to 18, O2 saturation 95% to 96% on room air, and T-max 98.2. GENERAL: This is a well-developed, well-nourished, very pleasant, thin white male, in no apparent distress at this time. HEENT: Reveals normocephalic and nontraumatic cranium. Pupils are equal, round, and reactive. Extraocular movements are intact. Nose and throat are slightly dry. NECK: Supple without masses, nodes, or bruits. CHEST: Clear to auscultation. No rales, no rhonchi, no wheezes are heard. HEART: Reveals a regular rate and rhythm without murmurs, gallops, or rubs. ABDOMEN: Soft and nontender without organomegaly. Normal bowel sounds are noted in all 4 quadrants. No rebound or guarding is noted. GENITOURINARY: Exam is deferred. EXTREMITIES: Reveal left fbsgu-zid-rjjw amputation, which is healing really well. NEUROLOGIC: The patient is oriented to person, place, and time. IMPRESSION: 1. Severe peripheral vascular disease, status post right pxjlr-nkm-yngo amputation. 2. Hypertension. 3. Hyperlipidemia. 4. Hyponatremia, which has resolved. 5. History of deep venous thrombosis and pulmonary embolism, presently on anticoagulation. 6. Right above-knee amputation, which is well healed. 7. Generalized weakness. PLAN: 1. The patient will be discharged today. 2. The patient will be followed up with his primary care doctor within the next week. 3. The patient's prescription has already been to sent to [place], which include ibuprofen and gabapentin. 4. The patient is to have home health arranged by Case Management. 5. Healthy-heart diet. 6. The patient is ready for discharge. I spent more than 30 minutes in care and discussion with this patient of getting him discharged back to his home. Job ID: [id number]
== END 2019-02-27 14:15 | disposition home health service (06) | DRG 560 ==
LOC: UNDOADMIN 19:24 → NAV ACUTE 19:24
PROVIDERS: ADMIT Internal Medicine; ATTEND Internal Medicine
DX: Z47.81 Encounter for orthopedic aftercare following surgical amputation (principal); E87.1 Hypo-osmolality and hyponatremia; I10 Essential (primary) hypertension; E78.5 Hyperlipidemia, unspecified; I73.9 Peripheral vascular disease, unspecified; Z87.891 Personal history of nicotine dependence; Z89.512 Acquired absence of left leg below knee; Z89.611 Acquired absence of right leg above knee; Z86.718 Personal history of other venous thrombosis and embolism; Z90.49 Acquired absence of other specified parts of digestive tract; Z98.890 Other specified postprocedural states; Z79.899 Other long term (current) drug therapy; Z79.82 Long term (current) use of aspirin; Z79.01 Long term (current) use of anticoagulants
CPT/HCPCS: 36415; 80048; 85025